=== PATIENT | female | born 1940 | race Caucasian/White ===

== ENCOUNTER 2016-12-27 01:25 | Emergency (ER) | payer OTHER ==
[~2016-12-27] VITALS: Ht 152.4 cm; Wt 81.2 kg
[~2016-12-27 01:25] MED LIST: APIX5T PO; ASPIRIN CHILDRE81 MG PO; ATORVASTATIN CA20 MG PO; CAPTOPRIL50 MG PO; CARVEDILOL12.5 MG PO; CENTRUM SILVER1 TA1 PO; CLOPIDOGREL75 MG PO; COREG 12.5MG12.5 MG PO; COREG 25 MG TAB25 MG PO; FISH OIL CONC1000 MG PO; GLIMEPIRIDE1 MG PO; HYDRODIURIL 2525 MG PO; JANUVIA 100MG100 MG PO; LANTUS100 U/ML SC; LEVOTHYROXINE0.05 M1 PO; METFORMIN850 MG PO; NIACIN500 MG PO; NORVASC 5MG TAB5 MG PO; PRILOSEC 20MG C20 MG PO
--- NOTE | 2016-12-27 01:42 | ED CARDIAC/CP/PALPITATIONS ---
History of Present Illness General Chief Complaint: Palpitations Stated Complaint: " CHEST FLUTTERING" HX A-FIB Source: patient, family, old records Exam Limitations: no limitations Vital Signs & Intake/Output Vital Signs & Intake/Output Vital Signs Date Time Temp Pulse Resp B/P Pulse O2 O2 Flow FiO2 Ox Delivery Rate 12/27 0145 Room Air 12/27 0144 96.5 77 16 165/72 96 Room Air Allergies Coded Allergies: MDX - Penicillin (PENICILLIN) (Severe, TONGUE SWELLING 12/27/16) MDX - Clindamycin (Intermediate, RASH 12/27/16) MDX - Neomycin (Intermediate, RASH 12/27/16) Reconcile Medications Amlodipine (Norvasc 5MG Tab) 5 MG TAB 1 TAB PO DAILY BP (Reported) Apixaban (Eliquis) 5 MG TAB 1 TAB PO BID atrial fibrillation Atorvastatin Calcium (Lipitor) 20 MG TABLET 2 TAB PO DAILY CHOLESTEROL ( Reported) Captopril 50 MG TABLET 1 TAB PO BID HTN (Reported) Carvedilol (Coreg) 12.5 MG TAB 1 TAB PO BID BP (Reported) Fish Oil (Fish Oil Concentrate) 1,000 MG SGL 1 CAP PO DAILY SUPPLEMENT ( Reported) Glimepiride 1 MG TAB 0.5 TAB PO DAILY DIABETES (Reported) Insulin Glargine, Recombinan (Lantus) 100 U/ML CAYETANO 18 UNITS SC PM DIABETES ( Reported) Levothyroxine Sodium 50 MCG TABLET 1 TAB PO DAILY AC THYROID (Reported) METFORMIN HCL (Metformin) 850 MG TABLET 1 TAB PO BID DIABETES (Reported) Multivitamin, Minerals, and (Centrum Silver) 1 TAB TAB 1 TAB PO DAILY SUPPLEMENT (Reported) Niacin 500 MG TAB 1 TAB PO DAILY SUPPLEMENT (Reported) Sitagliptin Phosphate (Januvia) 100 MG TABLET 1 TAB PO DAILY DIABETES ( Reported) Triage Nurses Notes Reviewed? yes HPI: Patient was sitting watching TV when she began to feel like her heart was fluttering. Patient denies any chest pain. There is no shortness of breath. Patient does have a history of paroxysmal atrial fibrillation she'll she became concerned to come into the emergency room for evaluation. The fluttering sensation has resolved on the way to the emergency room. Currently she is without complaints. Past History Medical History Any Pertinent Medical History? see below for history Neurological: migraine, TIA, BRACHIAL PLEXUS LT ARM EENT: cataracts Cardiovascular: hypertension, hyperlipidemia, PAF Respiratory: NONE Gastrointestinal: NONE Hepatic: NONE Renal: NONE Musculoskeletal: NONE Psychiatric: NONE Endocrine: diabetes, hypothyroidism Blood Disorders: NONE Cancer(s): NONE SHAKE CUTTER/Reproductive: NONE History of MRSA: No History of VRE: No History of CDIFF: No Influenza Vaccine: 06/24/15 Surgical History Surgical History: breast biopsy, cholecystectomy, hysterectomy Psychosocial History Who do you live with Spouse Services at Home None What is your primary language Syriac Tobacco Use: Never used ETOH Use: denies use Illicit Drug Use: denies illicit drug use Family History Family History, If Any: MOTHER FATHER Relation not specified for: FH: diabetes mellitus Heart attack Hx Contributory? No Review of Systems Review of Systems Constitutional: Reports: no symptoms. EENTM: Reports: no symptoms. Respiratory: Reports: no symptoms. Cardiovascular: Reports: see HPI, palpitations. GI: Reports: no symptoms. Genitourinary: Reports: no symptoms. Musculoskeletal: Reports: no symptoms. Skin: Reports: no symptoms. Neurological/Psychological: Reports: no symptoms. Hematologic/Endocrine: Reports: no symptoms. Immunologic/Allergic: Reports: no symptoms. All Other Systems: Reviewed and Negative Physical Exam Physical Exam General Appearance: well developed/nourished, alert, awake, anxious, mild distress Head: atraumatic, normal appearance Eyes: Bilateral: PERRL, EOMI. Ears, Nose, Throat: normal pharynx, normal ENT inspection, hearing grossly normal Neck: normal inspection, supple, full range of motion Respiratory: normal breath sounds, chest non-tender, no respiratory distress, lungs clear Cardiovascular: BIGEMITY Gastrointestinal: normal bowel sounds, soft, non-tender, no organomegaly Back: normal inspection, normal range of motion Extremities: normal inspection, normal capillary refill, normal range of motion, no edema Neurologic/Psych: no motor/sensory deficits, awake, alert, oriented x 3, normal gait, normal mood/affect Skin: intact, normal color, warm/dry Lymphatic: no anterior cervical rolando Core Measures ACS in differential dx? Yes ASA ordered for poss ACS? 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[employer] 12/27 138 Active THYROID STIMULATING HORMONE 12/27 138 Complete TROPONIN LEVEL 12/27 138 Complete MAGNESIUM 12/27 138 Complete COMPREHENSIVE METABOLIC PANEL 12/27 138 Complete CBC WITHOUT DIFFERENTIAL 12/27 138 Complete EKG 12/27 126 Active Laboratory Tests 12/27/16 0154: Anion Gap 13, Estimated GFR 49 L, BUN/Creatinine Ratio 21.8, Glucose 163 H, Calcium 9.0, Magnesium 1.5 L, Total Bilirubin 0.5, AST 17, ALT 25, Alkaline Phosphatase 86, Troponin I < 0.01, Total Protein 6.6, Albumin 3.8, Globulin 2.8, Albumin/Globulin Ratio 1.4, TSH 2.110, CBC w Diff NO MAN DIFF REQ, RBC 4.10 L, MCV 87.7, MCH 28.5, RDW 13.9, MPV 8.4, Gran % 44.6, Lymphocytes % 42.6, Monocytes % 10.9 H, Eosinophils % 1.3, Basophils % 0.6, Absolute Granulocytes 3.2, Absolute Lymphocytes 3.0, Absolute Monocytes 0.8 H, Absolute Eosinophils 0.1, Absolute Basophils 0, PUBS MCHC 32.5 L Initial ED EKG: SINUS RHYTHM WITH SUPRAVENTRICULAR BIGEMINY. nO ISCHEMIC CHANGES. Prior EKG: changed Rhythm Strip: normal sinus rhythm Departure Departure Disposition: HOME OR SELF CARE Condition: Stable Clinical Impression Primary Impression: Palpitation Referrals: GABRIEL CALVILLO,Michelle SORIANO (PCP/Family) Additional Instructions: REUTRN IF SYMPTOMS WORSEN OR FOR ANY CONCERNS SCARLET MAGNESIUM OXIDE 400MG TWICE A DAY Departure Forms: Customer Survey General Discharge Information Critical Care Note Critical Care Note Critical Care Time: non-applicable
[2016-12-27 01:44] VITALS: BP 165/72
[2016-12-27 02:10] LABS: ABSOLUTE BASOPHIL COUNT 0 /CUMM (0.0-0.2); ABSOLUTE EOSINOPHIL COUNT 0.1 /CUMM (0.0-0.7); ABSOLUTE GRANULOCYTE CT 3.2 /CUMM (1.4-6.5); ABSOLUTE MONOCYTE COUNT 0.8 /CUMM (0.10-0.60); BASOPHIL % 0.6 % (0.0-2.0); EOSINOPHIL % 1.3 % (0-5); GRANULOCYTE % 44.6 % (42.2-75.2); HEMATOCRIT 35.9 % (37-47); MEAN CORPUSCULAR HGB 28.5 PG (27.0-31.0); MEAN CORPUSCULAR HGB CONC 32.5 G/DL (33.0-37.0); MEAN CORPUSCULAR VOLUME 87.7 FL (81.0-99.0); MEAN PLATELET VOLUME 8.4 FL (7.4-10.4); PLATELET COUNT 258 /CUMM (130-400); RBC DISTRIBUTION WIDTH 13.9 % (11.5-14.5); WHITE BLOOD CELL COUNT 7.2 /CUMM (4.8-10.8)
== END 2016-12-27 04:18 ==
LOC: ERH 01:25
PROVIDERS: Emergency Medicine
DX: R00.2 Palpitations (principal)
CPT/HCPCS: 93005; 93010

== ENCOUNTER → 2017-01-03 | Day surgery (SDC) | payer OTHER ==
[~2017-01-03] VITALS: Ht 152.4 cm; Wt 81.6 kg
--- NOTE | 2017-01-03 08:06 | Operative Report ---
Operative/Inv Procedure Report Surgery Date: 01/03/17 Name of Procedure: Cataract extraction lens implantation left eye Pre-Operative Diagnosis: Age-related cataract left eye 20/60 vision Post-Operative Diagnosis: Same Estimated Blood Loss: none Surgeon/Transfer Specialist: DONNA CALVILLO,BEE Grider Anesthesia: local monitored anesthesi Complications: None Operative/Procedure Note Note: The patient was brought to the operating room standard monitoring equipment was attached the patient was prepped and draped in the usual fashion for intraocular surgery. A lid speculum was placed to retract the lids. The case was begun by making 2 partial-thickness corneal relaxing incisions at 98. A temporal incision with a 2.4 mm keratome. The eye was stabilized with a Baig ring during this incision. 1 mL of non-preserved lidocaine was introduced into the anterior chamber to provide anesthesia. The anterior chamber was then filled and deepened with viscoelastic. A curvilinear capsulorrhexis was achieved using a 30-gauge needle and is a cystotome and capsulorrhexis was finished using a Utrata forceps. A second or paracentesis incision was made temporally with a 1 mm MVR blade. The lens was then hydrodissected with balanced salt solution and found to be rotatable. The lens was emulsified using phacoemulsification and a modified four-quadrant cracking technique. The residual cortical material was removed using automated irrigation and aspiration and as much of the anterior capsular rim was cleaned as well as possible. The posterior capsule was cleaned first with the automated machine on a low setting and then manually with a Malcolm squeegee. The capsular bag was deepened with viscoelastic. The lens a Technis 1 23.0 diopter placed into the bag under direct visualization and rotated so that the haptics were at 12 and 6:00. Viscoelastic was then removed from the eye by flushing it out and then by automated irrigation and aspiration. The eye was pressurized to a normal tone. 1/10 of a cc of vancomycin solution was introduced into the anterior chamber to provide antibiotic prophylaxis. The wounds were sealed by hydrating the stroma adjacent to them and the eye was left at a proper tone after the wounds were checked and found not to be leaking. The lid speculum was removed from the orbit. Antibiotic and steroid drops were placed on the eye and then the eye was shielded. Monitoring equipment was removed from the patient and the patient was removed from the operative suite to the holding area. The patient tolerated the procedure well and will be seen in the office tomorrow.
== END ==
LOC: STS 02:50
DX: H25.9 Unspecified age-related cataract (principal); E11.9 Type 2 diabetes mellitus without complications; E03.9 Hypothyroidism, unspecified; I10 Essential (primary) hypertension; I48.91 Unspecified atrial fibrillation; Z79.84 Long term (current) use of oral hypoglycemic drugs
CPT/HCPCS: J2250; V2632

== ENCOUNTER → 2017-02-14 | Day surgery (SDC) | payer OTHER ==
[~2017-02-14] VITALS: Ht 152.4 cm; Wt 81.6 kg
--- NOTE | 2017-02-14 12:24 | Operative Report ---
Operative/Inv Procedure Report Surgery Date: 02/14/17 Name of Procedure: Cataract extraction lens implantation right eye Pre-Operative Diagnosis: Age-related cataract right eye 20/60 vision Post-Operative Diagnosis: Same Estimated Blood Loss: none Surgeon/Blueprint Maker: DONNA CALVILLO,BEE Grider Anesthesia: local monitored anesthesi Complications: None Operative/Procedure Note Note: The patient was brought to the operating room standard monitoring equipment was attached the patient was prepped and draped in the usual fashion for intraocular surgery. A lid speculum was placed to retract the lids. The case was begun by making 2 partial-thickness corneal relaxing incisions at 80. A temporal incision with a 2.4 mm keratome. The eye was stabilized with a Baig ring during this incision. 1 mL of non-preserved lidocaine was introduced into the anterior chamber to provide anesthesia. The anterior chamber was then filled and deepened with viscoelastic. A curvilinear capsulorrhexis was achieved using a 30-gauge needle and is a cystotome and capsulorrhexis was finished using a Utrata forceps. A second or paracentesis incision was made temporally with a 1 mm MVR blade. The lens was then hydrodissected with balanced salt solution and found to be rotatable. The lens was emulsified using phacoemulsification and a modified four-quadrant cracking technique. The residual cortical material was removed using automated irrigation and aspiration and as much of the anterior capsular rim was cleaned as well as possible. The posterior capsule was cleaned first with the automated machine on a low setting and then manually with a Malcolm squeegee. The capsular bag was deepened with viscoelastic. The lens a Technis 1 22.0 diopter placed into the bag under direct visualization and rotated so that the haptics were at 12 and 6:00. Viscoelastic was then removed from the eye by flushing it out and then by automated irrigation and aspiration. The eye was pressurized to a normal tone. 1/10 of a cc of vancomycin solution was introduced into the anterior chamber to provide antibiotic prophylaxis. The wounds were sealed by hydrating the stroma adjacent to them and the eye was left at a proper tone after the wounds were checked and found not to be leaking. The lid speculum was removed from the orbit. Antibiotic and steroid drops were placed on the eye and then the eye was shielded. Monitoring equipment was removed from the patient and the patient was removed from the operative suite to the holding area. The patient tolerated the procedure well and will be seen in the office tomorrow.
== END ==
LOC: STS 04:42
DX: H25.9 Unspecified age-related cataract (principal); E11.9 Type 2 diabetes mellitus without complications; Z79.84 Long term (current) use of oral hypoglycemic drugs; I10 Essential (primary) hypertension; E03.9 Hypothyroidism, unspecified
CPT/HCPCS: J2250; J2405; V2632